=== PATIENT | female | born 1965 | race Caucasian/White ===

== ENCOUNTER 2019-03-12 18:48 | Emergency (ER) | payer SELFPAY ==
[2019-03-12] MEDS ORDERED: Dexamethasone 4 MG TAB ONE (19:10)
[2019-03-12] MEDS ORDERED: Ketorolac Tromethamine 60 MG/2 ML VIAL ONE (19:39)
--- NOTE | 2019-03-12 21:05 | RAD ---
SOFT TISSUE NECK 03/12/19 The soft tissues are normal in thickness. There is no enlargement of the epiglottis. No opaque foreig n bodies were appreciated. The various calcifications seen anterior to C5 are presumed to be calcifie d laryngeal cartilages. IMPRESSION: No significant findings. POS: HOME
== END 2019-03-12 19:50 | disposition home or self-care (01) ==
LOC: BURERS 18:48
DX: K04.7 Periapical abscess without sinus (principal); F17.210 Nicotine dependence, cigarettes, uncomplicated
CPT/HCPCS: 70360; 96372; J1885; J8540